=== PATIENT | female | born 1995 | race Caucasian/White ===

== ENCOUNTER 2018-04-19 20:57 | Emergency (ER) | END 2018-04-19 23:55 | disposition home or self-care (01) ==

== ENCOUNTER 2018-12-30 19:18 | Emergency (ER) | payer MEDICAID, OTHER ==
[~2018-12-30] VITALS: Ht 170.2 cm; Wt 98.2 kg
[~2018-12-30 19:18] MED LIST: ACET500C5 PO; NAPR-985 PO
[2018-12-30 19:52] VITALS: Ht 170.2 cm; Wt 98.2 kg
[2018-12-31 02:34] VITALS: BP 117/58; PULSE 89; RESP 18
--- NOTE | 2018-12-31 11:21 | ERD ---
ER Documentation Chief Complaint Chief Complaint on and off vaginal bleeding x 5 days, states 13 weeks HPI 23-year-old female coming in today with Chief Complaint: vaginal bleeding History of Present Illness: Patient coming in today with complaint of vaginal bleeding that started 5 days ago, nonprogressive, continuous blood. Patient is A0. Patient associated symptoms includes mild abdominal cramping. Denies use of medications at home for symptoms. Denies any trauma. Review of systems: All systems were reviewed and are negative except for what is indicated in the history of present illness. Past Medical History: Negative for hypertension, diabetes or other medical problems Social History: Patient denies tobacco, alcohol, elicit drug use Medications: None Allergies: NKDA Social Concerns: Denies ROS All systems reviewed and are negative except as per history of present illness. Medications Home Meds Active Scripts Acetaminophen* (Tylophen*) 500 Mg Capsule, 1 CAP PO Q6H PRN for PAIN AND OR ELEVATED TEMP, #30 CAP Prov:LILLY ONEIL PA-C 04/19/18 Naproxen* (Naprosyn*) 500 Mg Tablet, 500 MG PO BID PRN for PAIN AND/OR INFLAMMATION, #30 TAB Prov:LILLY ONEIL PA-C 04/19/18 Allergies Allergies: Coded Allergies: No Known Allergy (Unverified , 04/19/18) PMhx/Soc Medical and Surgical Hx: pt denies Medical Hx, pt denies Surgical Hx Hx Alcohol Use: No Hx Substance Use: No Hx Tobacco Use: No Smoking Status: Never smoker FmHx Family History: No diabetes, No coronary disease Physical Exam Vitals Vital Signs Date Temp Pulse Resp B/P (MAP) Pulse Ox O2 O2 Flow FiO2 Time Delivery Rate 12/31/18 98.2 89 18 117/58 99 Room Air 02:34 (77) 12/30/18 98.8 84 18 119/67 99 19:52 (84) Physical Exam Const: No acute distress Head: Atraumatic Eyes: Normal Conjunctiva ENT: Normal External Ears, Nose and Mouth. Neck: Full range of motion. No meningismus. Resp: Clear to auscultation bilaterally Cardio: Regular rate and rhythm, no murmurs Abd: Soft, non tender, non distended. Normal bowel sounds. Skin: No petechiae or rashes Back: No midline or flank tenderness Ext: No cyanosis, or edema Neur: Awake and alert Psych: Normal Mood and Affect Vaginal exam deferred, patient refused after the ultrasound results. Result Diagram: 12/30/182127 Results 24 hrs Laboratory Tests Test 12/30/18 21:28 White Blood Count 9.4 10^3/ul Red Blood Count 4.33 10^6/ul Hemoglobin 12.7 g/dl Hematocrit 36.0 % Mean Corpuscular Volume 83.1 fl Mean Corpuscular Hemoglobin 29.3 pg Mean Corpuscular Hemoglobin Concent 35.3 g/dl Red Cell Distribution Width 12.4 % Platelet Count 337 10^3/UL Mean Platelet Volume 9.7 fl Immature Granulocytes % 0.500 % Neutrophils % 72.3 % Lymphocytes % 20.1 % Monocytes % 5.5 % Eosinophils % 1.2 % Basophils % 0.4 % Nucleated Red Blood Cells % 0.0 /100WBC Immature Granulocytes # 0.050 10^3/ul Neutrophils # 6.8 10^3/ul Lymphocytes # 1.9 10^3/ul Monocytes # 0.5 10^3/ul Eosinophils # 0.1 10^3/ul Basophils # 0.0 10^3/ul Nucleated Red Blood Cells # 0.0 10^3/ul Urine Color YELLOW Urine Clarity CLEAR Urine pH 6.0 Urine Specific [place] 1.012 Urine Ketones 1+ mg/dL Urine Nitrite NEGATIVE mg/dL Urine Bilirubin NEGATIVE mg/dL Urine Urobilinogen NEGATIVE mg/dL Urine Leukocyte Esterase NEGATIVE Ezio/ul Urine Microscopic RBC 9 /HPF Urine Microscopic WBC 0 /HPF Urine Hemoglobin 3+ mg/dL Urine Glucose NEGATIVE mg/dL Urine Total Protein NEGATIVE mg/dl Beta HCG, Quantitative 81472.0 mIU/ml Procedures/MDM ED course includes a thorough examination and history. ED course includes labs; CBC, urinalysis, beta quantitative. ED course includes imaging; transvaginal and abdominal OB ultrasound. Otherwise healthy patient presenting with constellation of symptoms likely representing vaginal bleeding/threatened miscarriage as characterized by history, physical exam findings, lab findings, imaging findings. No signs of infection with urinalysis, positive RBCs and hemoglobin. Ultrasound results unavailable at time of discharge, positive heart tones confirmed on preliminary report by community development technician. No respiratory distress, otherwise relatively well appearing and nontoxic. Patient educated on diagnoses, prescriptions, follow-up care, return precautions. Strict return precautions given for worsening condition; questions answered discharge. Disposition for discharge with followup in 2 days with PCP/clinic preferably [facility]. Departure Diagnosis: Primary Impression: Threatened Additional Impression: Vaginal bleeding Condition: Stable Patient Instructions: Vaginal Bleed in Referrals: [facility] YOU HAVE RECEIVED A MEDICAL SCREENING EXAM AND THE RESULTS INDICATE THAT YOU DO NOT HAVE A CONDITION THAT REQUIRES URGENT TREATMENT IN THE EMERGENCY DEPARTMENT. FURTHER EVALUATION AND TREATMENT OF YOUR CONDITION CAN WAIT UNTIL YOU ARE SEEN IN YOUR DOCTORS OFFICE WITHIN THE NEXT 1-2 DAYS. IT IS YOUR RESPONSIBILITY TO MAKE AN APPOINTMENT FOR FOLOW-UP CARE. IF YOU HAVE A PRIMARY DOCTOR --you should call your primary doctor and schedule an appointment IF YOU DO NOT HAVE A PRIMARY DOCTOR YOU CAN CALL OUR PHYSICIAN REFERRAL HOTLINE AT IF YOU CAN NOT AFFORD TO SEE A PHYSICIAN YOU CAN CHOSE FROM THE FOLLOWING [facility] [address] [facility] [address] [facility] [facility] [address] [facility] [address] [facility] [address] [facility] [facility]. [address] [facility]. [facility] YOU HAVE RECEIVED A MEDICAL SCREENING EXAM AND THE RESULTS INDICATE THAT YOU DO NOT HAVE A CONDITION THAT REQUIRES URGENT TREATMENT IN THE EMERGENCY DEPARTMENT. FURTHER EVALUATION AND TREATMENT OF YOUR CONDITION CAN WAIT UNTIL YOU ARE SEEN IN YOUR DOCTORS OFFICE WITHIN THE NEXT 1-2 DAYS. IT IS YOUR RESPONSIBILITY TO MAKE AN APPOINTMENT FOR FOLOW-UP CARE. IF YOU HAVE A PRIMARY DOCTOR --you should call your primary doctor and schedule and appointment IF YOU DO NOT HAVE A PRIMARY DOCTOR YOU CAN CALL OUR PHYSICIAN REFERRAL HOTLINE AT . IF YOU CAN NOT AFFORD TO SEE A PHYSICIAN YOU CAN CHOSE FROM THE FOLLOWING [facility] INSTITUTIONS: [facility] [address] [place] [address] [facility] [address] [place] [address] FORMERLY [facility] + [address] [address] Additional Instructions: Call your primary care doctor TOMORROW for an appointment during the next 2-3 days.See the doctor sooner or return here if your condition worsens before your appointment time. return to ER if you have severe vaginal bleeding, 1-2 pads per hour LEONARDO ROME NP Dec 31, 2018 11:21
--- NOTE | 2018-12-31 11:23 | EN ---
Date/Time of Note Date/Time of Note DATE: 12/31/18 TIME: 11:21 ER Progress Note Due to unavailability of final ultrasound read due to [facility] being down, was able to call patient today at 11:12 AM to go over final ultrasound results. Ultrasound results given. No abnormalities found live intrauterine . Patient's questions answered patient reporting [facility] appointment on 01/03/19. Reiterated importance of serial hCGs to monitor progress of . Educated to keep appointment, and return precautions given again. LEONARDO ROME NP Dec 31, 2018 11:23
== END 2018-12-31 02:35 | disposition home or self-care (01) ==
LOC: FTE 19:18
DX: O20.0 Threatened abortion (principal); Z3A.12 12 weeks gestation of pregnancy
CPT/HCPCS: 36415; 76801; 81001; 84702; 85025; Z7502

== ENCOUNTER 2019-04-09 17:29 | Outpatient (CLI) | payer MEDICAID ==
[~2019-04-09] VITALS: Ht 170.2 cm; Wt 96.3 kg
[2019-04-09 18:57] VITALS: Ht 170.2 cm; Wt 96.3 kg
[2019-04-09] MEDS ORDERED: PREN-93 PO (18:57)
[2019-04-09 18:58] VITALS: BP 110/60; PULSE 86; RESP 18
--- NOTE | 2019-04-09 19:50 | PREOPHP ---
DATE OF ADMISSION: 04/09/2019 HISTORY OF PRESENT ILLNESS: Ms. Sylvia Baires is a 23-year-old 1, para 0, EDC 07/05/2019 intra uterine at 27 weeks and 4 days gestational age, presented to triage complaining of right ab dominal pain with occasional nausea and vomiting. She denies any headache, shortness of breath, visu al changes, epigastric pain, or any contractions. Her vital signs are stable. Her care too k place with Dr. Brown. PAST MEDICAL HISTORY: None. MEDICATIONS: vitamins. PAST SURGICAL HISTORY: None. OBSTETRIC GYNECOLOGIC HISTORY: Primigravida, 13, regular 3 to 4 days. Denies any sexually transmitt ed infections. Sexually active with 1 partner. SOCIAL HISTORY: Denies any smoking, drugs or alcohol. FAMILY HISTORY: None. REVIEW OF SYSTEMS: All within normal except history of present illness. PHYSICAL EXAMINATION: HEENT: Within normal. LUNGS: CTA. CARDIOVASCULAR: S1, S2, regular rhythm. ABDOMEN: Gravid, positive right upper quadrant tenderness, negative CVA bilateral. EXTREMITIES: Negative calf tenderness. PELVIC: Vaginal exam deferred. ASSESSMENT: Intrauterine at 27 weeks and 4 days gestational age with right upper quadrant tenderness. PLAN: Abdominal ultrasound to rule out cholelithiasis and continue close monitoring with CBC, CMP. Dictated By: CHERYL HAMMOND/IVONNE Conf#: [id number] DID#: [id number]
[2019-04-09] MEDS ORDERED: ACETAMINOPHEN 500 MG TAB PO STA (21:10)
--- NOTE | 2019-04-10 04:52 | TRIAGE ---
OB Triage Datetime Report Generated by CPN: 04/10/2019 04:51 Datetime: 04/09/2019 21:39 Stage of : OB Triage Datetime: 04/09/2019 21:14 Stage of : OB Triage Labor Evaluation Frequency: None Monitor Mode: External Resting Tone Holton: Relaxed Heart Rate FHR Baseline Rate: 130 Monitor Mode: External US FHR Baseline Changes: No Baseline Change Variability: Moderate 6-25 bpm Datetime: 04/09/2019 21:12 Stage of : OB Triage Assessment Type: Triage Maternal Assessment Level of Consciousness: Keenly Alert, Responsive DTR's/Clonus: DTRs 2+; No Clonus Headache: Denies Blurred Vision: No Respiratory Effort: Unlabored; Regular Rhythm; Equal Expansion Breath Sounds, Left: Clear and Equal Breath Sounds, Right: Clear and Equal Nausea/Vomiting: Denies RUQ Epigastric Pain: Denies Lower Extremities Edema: None Degree: None Upper Extremities Edema: None Degree: None Facial Edema: None Temperature Route: Oral Fall Risk Assessment History of Falling: (0) No Secondary Diagnosis: (0) No Ambulatory Aid: (0) Bedrest/Nurse Assist IV Therapy: (0) No Gait: (0) Normal/Bedrest/Immobile Mental Status: (0) Oriented to Own Ability Fall Score: 0 Fall Risk Score Definition: No Risk: No action required Datetime: 04/09/2019 21:07 Stage of : OB Triage Datetime: 04/09/2019 21:02 Stage of : OB Triage Datetime: 04/09/2019 21:00 Stage of : OB Triage Labor Evaluation Frequency: x1 Monitor Mode: External Duration (sec)2399: 60 Quality: Mild Pattern: Normal: <= 5 Contractions in 10 Minutes Resting Tone [place]: Relaxed Heart Rate FHR Baseline Rate: 130 Monitor Mode: External US Variability: Moderate 6-25 bpm Accelerations: 15X15 Decelerations: None Category: Category I Datetime: 04/09/2019 20:00 Stage of : OB Triage Labor Evaluation Frequency: None noted or palpated Monitor Mode: External Resting Tone [place]: Relaxed Heart Rate FHR Baseline Rate: 135 Monitor Mode: External US Variability: Moderate 6-25 bpm Comments: Appropriate for gestational age Datetime: 04/09/2019 19:30 Stage of : OB Triage Datetime: 04/09/2019 19:23 Vaginal Exam Membrane Status: Intact Datetime: 04/09/2019 18:30 Time of Arrival: 04/09/2019 17:10 EGA: 27.4 Arrived By: Ambulatory Arrived From: Home Chief Complaint: PT. HERE C/O RUQ ABD. PAIN X 3 DAYS Movement: Present Contractions: Denies/Absent Rupture of Membranes: Denies Vaginal Bleeding: None Vaginal Discharge: Denies Recent Sexual Intercouse: Denies Abdominal Trauma: Not Applicable Patient Complaints: None Time Provider Notified: 04/09/2019 18:00 Provider Notified: KENDRA Initial Plan: RUQ ABD. U/S/BPP/CVL/CBC/CMP/SHANA/LIP/UA/
== END 2019-04-09 19:40 | disposition home or self-care (01) ==
LOC: OBT 17:29 → L-D 17:30 → OBT 19:40
PROVIDERS: ATTEND Obstetrics & Gynecology
DX: O26.892 Other specified pregnancy related conditions, second trimester (principal); R10.11 Right upper quadrant pain; Z3A.27 27 weeks gestation of pregnancy
CPT/HCPCS: 76705; 76817; 76818; 80053; 81001; 82150; 83690; 85025; Z7500; Z7610; G0463